=== PATIENT | male | born 1995 | race Two or more races ===

== ENCOUNTER 2022-09-10 00:24 | Emergency (ER) | payer MEDICAID ==
[~2022-09-10] VITALS: Ht 177.8 cm; Wt 97.7 kg
[2022-09-10] MEDS ORDERED: methylPREDNISolone SOD SUCC 125 MG/2 ML VL IM ONE (01:15)
[2022-09-10] MEDS ORDERED: KETOROLAC TROMETH 30 MG/ML 1ML VIAL IM ONE (01:15)
[2022-09-10] MEDS ORDERED: DICL75TA2 PO (02:01)
[2022-09-10 04:09] VITALS: BP 131/72
== END 2022-09-10 04:11 | disposition home or self-care (01) ==
LOC: ER 00:24
DX: R51.9 Headache, unspecified (principal)
CPT/HCPCS: 70450; 70480; 96372; 99285; J1885; J2930